=== PATIENT | male | born 1990 | race Asian ===

== ENCOUNTER → 2020-12-13 | Outpatient (REF) | LOC: M EMP 14:07 | PROVIDERS: ATTEND Family Medicine | DX: Z20.828 Contact with and (suspected) exposure to other viral communicable diseases (principal) ==

== ENCOUNTER → 2021-02-27 | Outpatient (REF) | LOC: M LAB 14:03 | PROVIDERS: ATTEND Nurse Practitioner Adult Health | DX: Z00.00 Encounter for general adult medical examination without abnormal findings (principal) ==